=== PATIENT | female | born 1960 | race Caucasian/White ===

== ENCOUNTER 2018-01-22 06:44 | Emergency (ER) | payer MEDICARE, MEDICAID ==
[2018-01-22] MEDS ORDERED: Albuterol 0.083% 2.5 MG/3 ML Neb Soln NEB ONE (07:32)
--- NOTE | 2018-01-22 07:38 | EDM.PDOC ---
ED HPI GENERAL MEDICAL PROBLEM - General Chief Complaint: Fever Stated Complaint: FROM OUTPATIENT Time Seen by Provider: 01/22/18 07:33 Source of Information: Reports: Patient History Limitations: Reports: No Limitations - History of Present Illness INITIAL COMMENTS - FREE TEXT/NARRATIVE: Pt was at the hosp for a GED. She has been coughing and wheezing alot. She has been raising green sputum. She has felt sob. She did have a wbc in the outpt dept which was 11,000. Onset: Gradual, Other ( She has not felt well for the past 2 days. ) Duration: Hour(s): Associated Symptoms: Reports: Cough, Fever/Chills, Shortness of Breath generalized Pain Score (Numeric/FACES): 5 - Related Data Allergies Allergy/AdvReac Type Severity Reaction Status Date / Time codeine Allergy Nausea Verified 01/22/18 07:07 lisinopril Allergy Cough Verified 01/22/18 07:07 rituximab [From Rituxan] Allergy Itching Verified 01/22/18 07:07 Home Meds: Home Meds Albuterol [Ventolin HFA] 2 puff IH Q6HR PRN 01/21/18 [History] Aspirin 325 mg PO DAILY 01/21/18 [History] Calcium Carbonate/Vitamin D3 [Calcium 600 + Vit D 400 Softgl] 1 tab PO DAILY [History] Cholecalciferol (Vitamin D3) [Vitamin D3] 1,000 units PO DAILY 01/21/18 [History ] ClonazePAM [KlonoPIN] 0.5 mg PO BID PRN 01/21/18 [History] Cyanocobalamin (Vitamin B-12) [B-12] 5,000 mcg SL DAILY 01/21/18 [History] Furosemide [Lasix] 20 mg PO DAILY 01/21/18 [History] Glycerin/Propylene Glycol [Artificial Tears Drops] 1 drop EYEBOTH ASDIRECTED [History] Losartan [Cozaar] 25 mg PO DAILY 01/21/18 [History] Metoprolol Succinate [Toprol XL] 25 mg PO DAILY 01/21/18 [History] Multivitamin [Multivitamins] 1 cap PO DAILY 01/21/18 [History] Nitroglycerin 0.4 mg SL ASDIRECTED PRN MDD c 01/21/18 [History] [place]-3/DHA/Epa/Fish Oil [[place]-3 Fish Oil 1,200 MG Sfgl] 1 cap PO DAILY [History] Omeprazole 20 mg PO DAILY 01/21/18 [History] atorvaSTATin [Lipitor] 40 mg PO DAILY 01/21/18 [History] traMADol [Ultram] 50 mg PO BID 01/21/18 [History] Past Medical History HEENT History: Reports: Sinusitis, Other (See Below) Other HEENT History: Fuchsenothelial dystrophy; chronic inflammatory keratitis; ITP Cardiovascular History: Reports: Bypass, CAD, Heart Failure, High Cholesterol, Hypertension, [place], SOB on Exertion, Stents, Other (See Below) Other Cardiovascular History: CABG; atherosclerosis; PFO Respiratory History: Reports: Asthma, Bronchitis, Recurrent, Pneumonia, Recurrent, Sleep Apnea, SOB, Other (See Below) Other Respiratory History: PFO Gastrointestinal History: Reports: Chronic Constipation, Chronic Diarrhea, Colon Polyp, GERD, Hiatal Hernia, Irritable Bowel Syndrome, Other (See Below) Other Gastrointestinal History: Barretts esphogus Genitourinary History: Reports: None 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: Reports: Musculoskeletal History: Reports: Arthritis, Back Pain, Chronic, Fibromyalgia, Neck Pain, Chronic, RA, Other (See Below) Other Musculoskeletal History: cervical stenosis; ostepenia; chronic pain syndrome; Facet syndrome, psoriatic arthritis Psychiatric History: Reports: Anxiety, Depression, OCD Endocrine/Metabolic History: Reports: Obesity/BMI 30+, Vitamin D Deficiency Hematologic History: Reports: Anemia, B12 Deficiency, Transfusion Reaction, Other (See Below) Other Hematologic History: Rituxan reaction Dermatologic History: Reports: Psoriasis, Other (See Below) Other Dermatologic History: psoriatic arthritis - Infectious Disease History Infectious Disease History: Reports: Chicken Pox, Measles, Mumps - Past Surgical History HEENT Surgical History: Reports: None Cardiovascular Surgical History: Reports: Coronary Artery Bypass, Coronary Artery Stent Respiratory Surgical History: Reports: None GI Surgical History: Reports: Colonoscopy, EGD, Hernia, Abdominal, Polypectomy Female Surgical History: Reports: Section, Other (See Below) Other Female Surgeries/Procedures: breast augmentation, interstitial cystitis Endocrine Surgical History: Reports: None Musculoskeletal Surgical History: Reports: None Dermatological Surgical History: Reports: Skin Biopsy Social & Family History - Family History HEENT: Reports: Impaired Vision Cardiac: Reports: CAD Musculoskeletal: Reports: Arthritis, RA - Tobacco Use Smoking Status *Q: Current Every Day Smoker Years of Tobacco use: 40 Packs/Tins Daily: 0.5 - Caffeine Use Caffeine Use: Reports: Coffee ED ROS GENERAL - Review of Systems Review Of Systems: See Below Constitutional: Reports: Fever, Chills, Malaise HEENT: Reports: No Symptoms Respiratory: Reports: Shortness of Breath, Cough, Sputum Cardiovascular: Reports: No Symptoms Endocrine: Reports: No Symptoms GI/Abdominal: Reports: No Symptoms : Reports: No Symptoms Musculoskeletal: Reports: No Symptoms Skin: Reports: No Symptoms Neurological: Reports: No Symptoms ED EXAM, GENERAL - Physical Exam Exam: See Below Free Text/Narrative:: Pt arrived with a cough and raising colored sputum. She has been mildly sob. She has been coughing alot. Exam Limited By: No Limitations General Appearance: Alert, Anxious, Moderate Distress Ears: Normal TMs Nose: Normal Inspection Throat/Mouth: Other (Mild redness in throat no exudate. ) Head: Atraumatic Neck: Normal Inspection Respiratory/Chest: Decreased Breath Sounds, Wheezing Cardiovascular: Regular Rate, Rhythm, Tachycardia GI/Abdominal: Soft, Non-Tender (Female) Exam: Deferred Rectal (Female) Exam: Deferred Back Exam: Normal Inspection Extremities: Normal Inspection Neurological: Alert, Oriented, Normal Cognition Psychiatric: Normal Affect Course - Vital Signs Last Recorded V/S: Last Vital Signs Temp 37.6 C 01/22/18 07:15 Pulse 80 01/22/18 07:47 Resp 18 01/22/18 07:15 BP 161/63 H 01/22/18 07:15 Pulse Ox 94 L 01/22/18 07:47 - Orders/Labs/Meds Orders: Active Orders 24 hr Category Date Time Status RT Aerosol Therapy [RC] ASDIRECTED Care 01/22/18 07:32 Active Meds: Medications Discontinued Medications Generic Name Dose Route Start Last Admin Trade Name Freq PRN Reason Stop Dose Admin Albuterol 2.5 mg 01/22/18 07:32 01/22/18 07:47 Proventil Neb Soln NEB 01/22/18 07:33 2.5 mg ONETIME ONE Administration - Re-Assessments/Exams Free Text/Narrative Re-Assessment/Exam: 01/22/18 08:24 pt was given a neb with good relief of the wheezing. Departure - Departure Time of Disposition: 08:25 Disposition: Home, Self-Care 01 Condition: Fair Clinical Impression: Bronchitis, Bronchospasm - Discharge Information Referrals: Arlyn Belcher [Primary Care Provider] - Forms: ED Department Discharge Care Plan Goals: push fluids, cool mist humidifier, augmentin 875 bid, tesslon perles 100mg tid prn for cough, albuterol injhaler 2 puff tid for wheezing. --use with a small practicing urologist. - My Orders Last 24 Hours: My Active Orders 01/22/18 07:32 RT Aerosol Therapy [RC] ASDIRECTED - Assessment/Plan Last 24 Hours: My Active Orders 01/22/18 07:32 RT Aerosol Therapy [RC] ASDIRECTED
== END 2018-01-22 08:44 | disposition home or self-care (01) ==
LOC: JP.ED 06:44
DX: J98.01 Acute bronchospasm (principal); J40 Bronchitis, not specified as acute or chronic; F17.210 Nicotine dependence, cigarettes, uncomplicated; I11.0 Hypertensive heart disease with heart failure; I50.9 Heart failure, unspecified; I25.2 Old myocardial infarction; M19.90 Unspecified osteoarthritis, unspecified site; F41.9 Anxiety disorder, unspecified; F32.9 Major depressive disorder, single episode, unspecified; D64.9 Anemia, unspecified; Z79.899 Other long term (current) drug therapy; Z79.82 Long term (current) use of aspirin; Z88.5 Allergy status to narcotic agent; Z88.8 Allergy status to other drugs, medicaments and biological substances
CPT/HCPCS: 94640; 99283; 99284-25

== ENCOUNTER → 2018-01-22 | Day surgery (SDC) | payer MEDICARE, MEDICAID ==
[~2018-01-22] MED LIST: Dextrose 5%-Lactated Ringers 1,000 ML IV SCH; Glycopyrrolate 0.2 MG/ML 2 ML SDV IVPUSH ONE
== END ==
LOC: JP.SDS 05:02
PROVIDERS: ATTEND Surgery
DX: K22.70 Barrett's esophagus without dysplasia (principal); Z86.010 Personal history of colon polyps; Z88.5 Allergy status to narcotic agent; Z88.8 Allergy status to other drugs, medicaments and biological substances; Z53.8 Procedure and treatment not carried out for other reasons
CPT/HCPCS: 36415; 85027